=== PATIENT | male | born 2000 | race American Indian/Alaskan Native ===

== ENCOUNTER 2021-08-30 02:11 | Emergency (ER) | payer SELFPAY ==
[2021-08-30] MEDS ORDERED: Ondansetron PF 4 MG/2 ML Vial ONE ×2 (02:24→02:27)
== END 2021-08-30 06:04 | disposition home or self-care (01) ==
LOC: EDBD 02:11 → ERS 02:11
DX: F10.129 Alcohol abuse with intoxication, unspecified (principal)
CPT/HCPCS: 96374; J2405